=== PATIENT | female | born 1975 | race Caucasian/White ===

== ENCOUNTER → 2021-12-22 09:00 | Outpatient (CLI) | payer BC, SELFPAY ==
--- NOTE | ~2021-12-22 | US_ITS ---
EXAMINATION: US thyroid EXAM DATE: 12/22/2021 09:16 INDICATION: Disorder of thyroid . TECHNIQUE: Multiple grayscale and Doppler images of the thyroid were obtained (by a technologist who performed the scan) and subsequently reviewed. Individual nodules and recommendations may be reporte d in accordance with TI-RADS system as designated by the 2017 ACR White Paper TI-RADS committee. The re is no prior study for comparison. FINDINGS: The right thyroid lobe measures 5.2 x 1.5 x 1.7 cm, the left measuring 5.0 x 1.2 x 1.5 cm. Relatively homogeneous thyroid parenchyma with expected amount of vascularity. There is a left thyroid lobe cat egory TR 4 nodule measuring 8 x 4 x 7 mm which is not likely clinically significant. IMPRESSION: Small small right thyroid lobe nodule. Return to clinical follow-up and if additional palpable abnormality develops a repeat ultrasound can be obtained. Reviewed, dictated and finalized at location B. [employer]
== END ==
PROVIDERS: Visit Provider Nurse Practitioner
DX: E04.1 Nontoxic single thyroid nodule (principal)
CPT/HCPCS: 76536

== ENCOUNTER 2024-04-30 09:59 | Outpatient (CLI) | payer SELFPAY ==
--- NOTE | ~2024-04-30 | US_ITS ---
EXAMINATION: US transvaginal DATE: 04/30/2024 10:41 INDICATION: Menorrhagia. TECHNIQUE: Multiple transvaginal sonographic images of the pelvis were obtained. COMPARISON: None. FINDINGS: The uterus measures 8.1 x 6.0 x 5.9 cm. There is physiologic free fluid in the pelvis. The endometria l complex measures 15 mm in thickness. The right ovary measures 2.4 x 1.4 x 2.0 cm. The left ovary me asures 2.2 x 1.6 x 2.1 cm. There is normal vascular flow in the ovaries. IMPRESSION: 1. Normal pelvis. Reviewed, dictated and finalized at location A. IMPRESSION: 1. Normal pelvis.
== END 2024-04-30 10:00 ==
PROVIDERS: PCP Nurse Practitioner; Visit Provider Nurse Practitioner
DX: N92.0 Excessive and frequent menstruation with regular cycle (principal)
CPT/HCPCS: 76830